=== PATIENT | female | born 1990 | race Caucasian/White ===

== ENCOUNTER → 2023-10-07 16:41 | Outpatient (CLI) | payer OTHER, SELFPAY ==
--- NOTE | 2023-10-07 | DI.US.S_ITS ---
PROCEDURE: US OB <= 14 WEEKS FETUS INDICATIONS: VIABILITY OUTSIDE/PRIOR DATING DATA: Last menstrual period (LMP): August 26, 2023. LMP-based estimated date of delivery (RASHI): June 01, 2024. First dating scan (date and location): October 07, 2023, [facility]. TECHNIQUE: Real-time scanning was performed of the fetus and maternal pelvic organs, with image documentation. Endovaginal scanning was also performed to better visualize the fetus and maternal ovaries. COMPARISON: None. FINDINGS: Embryo: No pole is visualized. No yolk sac is visualized. There is a gestational sac which measures 0.6 cm for a gestational age of 5 weeks 2 days by mean gestational sac diameter. There may be a small perigestational bleed which measures 0.9 x 0.1 by 1.0 cm. Heart rate: Not applicable Maternal organs: Ovaries have a normal sonographic appearance. There is likely a left corpus luteal cyst noted.. IMPRESSION: 1. Gestational sac present with a calculated gestational age of 5 weeks 2 days by mean gestational sac diameter. No pole yet visualized. Differential considerations include early dates. However, ectopic or blighted ovum cannot be excluded and close clinical and sonographic surveillance recommended. We strive to produce accurate, complete, and clear reports of imaging services. To assist us in improving patient care, this report was composed using standard report templates and voice recognition software. Therefore, it may contain abnormal punctuation, insertions and/or omissions. Occasional wrong-word or sound-alike substitutions may occur. Though we review the report and make efforts to correct it, we do recommend that the report be read carefully in proper context to recognize any text inaccuracies. Dictated by: Georgiana Hess M.D. on 10/08/2023 at 10:34 Approved by: Georgiana Hess M.D. on 10/08/2023 at 10:39
== END ==
PROVIDERS: PCP Nurse Practitioner Family; Referring Provider Advanced Practice Midwife; Visit Provider Advanced Practice Midwife
DX: O36.80X0 Pregnancy with inconclusive fetal viability, not applicable or unspecified (principal)
CPT/HCPCS: 76801; 76817

== ENCOUNTER 2024-08-19 16:32 | Outpatient (CLI) | payer OTHER, SELFPAY ==
--- NOTE | 2024-08-19 17:34 | PM.OBTRLD ---
Visit Information Visit Information Date of evaluation: 08/19/24 Primary OB Provider: Simi Galvan On-call OB Provider: Simi Galvan Reason for Evaluation: Yes non-stress test Comments/Additional reasons for admission: 34YO @ 36wks 0 days by LMP concordant with 11wk US referred from clinic for NST. Audible deceleration while in clinic. +FM. No vaginal bleeding, cramping or leaking of fluid. Vital Signs Vital Signs: BP 123/78, HR 111, T 36.3C Temporal PFSH Medical History (Updated 08/27/24 @ 11:55 by Simi Galvan CNM) Hyperthyroidism Surgical History (Updated 08/27/24 @ 11:27 by Simi Galvan CNM) History of D&C Review of Systems Review of Systems ROS: Yes All systems reviewed with the patient and are negative except as otherwise documented Exam Vital Signs (past 8 hours): see above Presentation: vertex Evaluation Evaluation Baseline heart rate: 140 Variability: Moderate (11-25) monitor accelerations: Present Monitor Decelerations: Absent Comments: CE deferred, not in labor Diagnosis, Plan/Disposition Final Diagnosis (1) Encounter for supervision of normal first , unspecified trimester: Status: Acute (2) Unspecified abnormal findings on screening of mother: Status: Acute Problem details: Reactive NST Plan/Disposition Plan: Discharge to home with reassurance of normal and routine precautions. RTC in 1 week as previously scheduled. OB Disposition: home
== END 2024-08-19 17:45 | disposition home or self-care (01) ==
LOC: OB 08-20 06:06
PROVIDERS: PCP Nurse Practitioner Family; Referring Provider Nurse Practitioner Obstetrics & Gynecology; Visit Provider Nurse Practitioner Obstetrics & Gynecology
DX: O36.8330 Maternal care for abnormalities of the fetal heart rate or rhythm, third trimester, not applicable or unspecified (principal); Z3A.36 36 weeks gestation of pregnancy
CPT/HCPCS: 59025; G0378; G0379

== ENCOUNTER 2024-09-13 10:00 | Outpatient (CLI) | payer OTHER, SELFPAY ==
--- NOTE | 2024-09-13 11:38 | PM.OBTRLD ---
Visit Information Visit Information Date of evaluation: 09/13/24 Primary OB Provider: Emily Valencia Reason for Evaluation: Yes rule out labor Comments/Additional reasons for admission: Heladio is a 34yo at 39w 4d gestation arrives with complaints of irregular contractions since , 09/10. Timing contractions at home irregular every 5-30 min. Will have a few in a row that are 5min apart and then a longer break. Feels like they are a little bit more consistent since this am at 0600. Reports pain with contractions similar to her menstrual cycle and states I have painful periods. Still able to talk through contractions and sleep in between them. Reports good movement. Eating and drinking well. No leaking of fluid or bleeding. Needs reassurance that she and her baby are doing well. Vital Signs Vital Signs: BP 125/78, P-118 down to 80 prior to discharge, Temp 36.6C PFSH Medical History (Updated 09/13/24 @ 11:58 by Emily Valencia, ROBERT, DIRECTOR [employer] NURSING) Trisomy 13 of fetus affecting management of Migraines Hyperthyroidism Surgical History (Updated 08/27/24 @ 11:27 by Simi Galvan CNM) History of D&C Evaluation Evaluation Baseline heart rate: 130 Variability: Moderate (11-25) monitor accelerations: Present Monitor Decelerations: Absent Contraction Frequency (minutes): 10 (7-13 w/irritability in between) Uterine Contraction Intensity: Mild Category of Tracing: Reactive Cervical dilation (cm): 1 Cervical effacement (%): 50 station: -3 Diagnosis, Plan/Disposition Final Diagnosis (1) NST (non-stress test) reactive: Status: Acute (2) Supervision of normal in third trimester: Status: Acute Plan/Disposition Plan: A: in early labor at 39w 4d. Vertex presentation Reactive NST GBS negative P: Discharge Home w/ early labor precautions Offered therapeutic rest, declined Recommended [place] circuit Encouraged rest, hydration and good nutrition Call with any concerns or for support. Billing: Z36.89, [id number] Z34.05, [id number]
== END 2024-09-13 11:52 | disposition home or self-care (01) ==
LOC: OB 09-14 08:05
PROVIDERS: PCP Nurse Practitioner Family; Referring Provider Advanced Practice Midwife; Visit Provider Advanced Practice Midwife
DX: O47.1 False labor at or after 37 completed weeks of gestation (principal); Z3A.39 39 weeks gestation of pregnancy
CPT/HCPCS: 59025; G0378; G0379

== ENCOUNTER 2024-09-14 05:41 | Inpatient (IN) | payer OTHER, SELFPAY ==
--- NOTE | 2024-09-14 06:52 | P.HPOB_ITS ---
OB HPI Date/Time Date of admission: 09/14/24 Date Patient Seen: 09/14/24 Time Patient Seen: 06:56 History of Present Condition Chief complaint: Labor : 3 Para: 0 Estimated Date of Delivery: 09/16/24 Estimated Gestational Age (weeks): 39w 5d Narrative: Heladio Henson is a 34 year old female having painful contractions every 10 min, lasting 2.5min since 0200am. Feels like contractions progressingly gotten worse, breathing through them, unable to get comfortable. Rating them 10/10. She has tried bath, TENS unit and position changes at home with no relief. Reports good movement. Concerned about going home, does not feel like therapeutic rest is going to help as she is not feeling tired. She would like to stay for epidural and augmentation; seems relieved to be offered this option. Family history of labor with makes her not opposed to that option and wants if there are concerns about baby before things get emergent. Indications Other reason(s) for admission: Augmenting early labor History of Present care: good care Dating criteria: LMP confirmed by 1st trimester US Ultrasounds: normal 1st trimester US and normal mid trimester US Obstetrical complications: none Medical complications: none Preadmission Labs Blood type: O (+) positive -: Antibody screen: negative, Cystic fibrosis screen: negative, GBS status: negative, HBsAG: negative, HIV: negative, HSV 1: unknown, HSV 2: unknown and RPR/VDLR: negative -: Chlamydia screen: not detected and Gonorrhea screen: not detected -: Rubella: immune and Varicella: immune HCT: 36.1 HCAB: negative PAP: Normal Cell-free DNA: Negative x 3 1 hr GTT: 73 Prior (ies) Hx # Term Pregnancies: 0 Hx # Pregnancies: 0 Number of Living Children: 0 Multiple births: 0 Spontaneous abortions: 1 Ectopic pregnancies: 0 Elective abortions: 1 (15 week TAB for trisomy 13) Evaluation Evaluation Baseline heart rate: 130 Variability: Moderate (11-25) monitor accelerations: Present Monitor Decelerations: Absent Contraction Frequency (minutes): 8 (8-12) Status: Category l Dilation (cm): 2 Effacement (%): 70 Dilation: 1-2 cm Effacement: 60-70% station: -2 Position of cervix: anterior Consistency: soft Vaughn score: 8 [facility] Medical History (Updated 09/13/24 @ 11:58 by Emily Valencia CNM, ALLAN) Trisomy 13 of fetus affecting management of Migraines Hyperthyroidism Surgical History History of D&C Family History Father Hypertension Cancer Mother Hypothyroid Liver transplant status Grandmother Osteoporosis Social History marital status: number of children: 0 household members: spouse lives independently: Yes caregiver/support person: No housing: house pets and animals: Yes current occupational exposures/hazards: No leisure activities: other other: horseback riding seatbelt use: always helmet use: Yes water heater temp set < 120 deg: Yes working smoke detector in home: Yes fire extinguisher in home: Yes carbon monox detector in home: Yes Smoking Status: Never smoker alcohol intake: former substance use type: does not use well-balanced diet: daily or most days Meds Home Medications and Allergies Allergies Allergy/AdvReac Type Severity Reaction Status Date / Time amoxicillin Allergy Rash Verified 09/14/24 07:42 Review of Systems Constitutional Comments: No fatigue OB Exam Vital signs Blood Pressure: 131/79 Pulse Rate: 110 Respiratory Rate: 18 Temperature: 97.7 F HENMT Head: normal to inspection and normocephalic Mouth: lip normal Eyes General: appearance normal, both eyes and all related structures Resp Effort & Inspection: normal respiratory effort and able to speak in complete sentences Cardio Rate: regular rate Rhythm: regular rhythm Heart Sounds: S1 normal and S2 normal Extremities Lower extremity: Yes normal to inspection GI Inspection: normal to inspection External Female Exam: Yes normal external appearance Presentation: vertex Assessment and Plan Assessment and Plan Assessment and Plan narrative: A: 34yo at 39w5d Early Labor Negative GBS Rubella Immune Category I tracing Rh positive Pen allergic P: Offered therapeutic rest in hospital or at home versus labor epidural and augmentation w/oxytocin PRN. Provided reassurance that CNM priority is safety of mother and baby. Reviewed possible side effects of epidural and position changes for resucitation. Admit to L&D for epidural. Anticipate . Time-Based Coding :: [TOTAL MINUTES] spent with patient and on the chart (including review of chart, obtaining history, exam, reviewing outside data, placing orders, documenting exam and treatment plan, and counseling patient) on [DATE].
[2024-09-14 07:53] VITALS: BP 131/79; PULSE 110; RESP 18; TEMP 36.5
[2024-09-14] MEDS: LACTATED RINGERS 1,000 ML 100 ML IV ×3 (08:44→18:12)
[2024-09-14 08:47] LABS: Add Manual Diff / Slide Review NO; Basophils Absolute Auto 100 /uL (0-100); Basophils Percent Auto 0.4 % (0-2); Eosinophils Absolute Auto 100 /uL (0-450); Eosinophils Percent Auto 0.3 % (2-4); Hematocrit 38.9 % (36-46); Hemoglobin 13.2 g/dL (12.0-16.0); Lymphocytes Absolute Auto 1500 /uL (1100-4500); Lymphocytes Percent Auto 9.6 % (25-40); Mean Corpuscular HGB Conc 33.9 % (30-36); Mean Corpuscular Hemoglobin 30.8 PG (26-34); Mean Corpuscular Volume 90.9 fL (80-100); Monocytes Absolute Auto 700 /uL (0-900); Monocytes Percent Auto 4.5 % (3-14); Neutrophils Absolute Auto 13700 /uL (1500-7000); Neutrophils Percent Auto 85.2 % (50-75); Platelet Count 172 X10^3/uL (150-400); Red Blood Cell Count 4.28 X10^6/uL (4.0-5.2); Red Cell Distribution Width 14.8 % (11.6-14.8)
--- NOTE | 2024-09-14 09:38 | PM.AN.REGBLK ---
Regional Block Pre-procedure Procedure: Continuous Lumbar Epidural for L&D Attending OB provider: Emily Valencia PMH/ROS narrative: , 39 5/7, spontaneous labor, membranes intact, dilation 2 requests epidural. ROS negative with exception of GERD with this . PSH/Anesthesia history narrative: [place] teeth, elective -no anesthesia complications Exam narrative: Mall 2, no concerns ASA Class: II Labs: Hct 38.9 % (36-46) 09/14/24 08:20 Plt Count 172 X10^3/uL (150-400) 09/14/24 08:20 Medications: Current Medications Generic Name Dose Route Start Last Admin Trade Name Freq PRN Reason Stop Dose Admin Calcium Carbonate 1,000 mg 09/14/24 06:53 Calcium Carbonate 500 Mg Tab PO Q2HR PRN Dyspepsia Carboprost Tromethamine 250 mcg 09/14/24 06:53 Carboprost 250 Mcg/Ml Ampul IM Q90M PRN Bleeding Fentanyl 100 mcg 09/14/24 06:53 Fentanyl 100 Mcg/2 Ml Inj IV Q1H PRN Pain, Severe (7-10) Oxytocin/Lactated Ringer's 30 unit in 500 mls @ 200 mls/hr 09/14/24 06:53 Oxytocin Premix IV CONT PRN Bleeding Protocol Tranexamic Acid 1,000 mg/ 100 mls @ 600 mls/hr 09/14/24 06:53 Sodium Chloride IV NOW PRN Bleeding Oxytocin/Lactated Ringer's 30 unit in 500 mls @ 2 mls/hr 09/14/24 07:00 Oxytocin Premix IV TITRATE NIKKI Protocol 2 MILLIUNIT/MIN Lactated Ringer's 1,000 mls @ 100 mls/hr 09/14/24 07:00 09/14/24 08:44 Lactated Ringers IV 09/14/24 16:59 100 mls/hr CONT NIKKI Administration Lidocaine HCl 20 ml 09/14/24 06:53 Lidocaine 1% 20 Ml INJ INTRA-OP PRN Post Delivery Methylergonovine Maleate 0.2 mg 09/14/24 06:53 Methylergonovine 0.2 Mg Tablet PO Q6HR PRN Heavy Bleeding Methylergonovine Maleate 0.2 mg 09/14/24 06:53 Methylergonovine 0.2 Mg/Ml Vial IM NOW PRN Bleeding Mineral Oil 30 ml 09/14/24 06:53 Mineral Oil 30 Ml Udc TOP PRN PRN Version Misoprostol 800 mcg 09/14/24 06:53 Misoprostol 200 Mcg Tablet WV NOW PRN Bleeding Misoprostol 400 mcg 09/14/24 06:53 Misoprostol 200 Mcg Tablet SL NOW PRN Bleeding Naloxone HCl 0.2 mg 09/14/24 06:53 Naloxone 0.4 Mg/Ml Vial IV Q2MIN PRN Opiate Reversal Ondansetron HCl 4 mg 09/14/24 06:53 Ondansetron 4 Mg/2 Ml Inj IV Q4HR PRN Nausea And Vomiting Oxytocin 10 unit 09/14/24 06:53 Oxytocin 10 Unit/Ml Vial IM NOW PRN Bleeding Allergies: Allergies Allergy/AdvReac Type Severity Reaction Status Date / Time amoxicillin Allergy Rash Verified 09/14/24 07:42 Procedure Insertion date: 09/14/24 Insertion time: 08:56 Prep/Local: 1% lidocaine (chlorhexidine skin prep, dry x 3 min) Interspace: L4-5 Patient position: sitting Needle: 17 gauge Tuohy Loss of resistance with: saline MATTHEW at (cm): 6 Catheter placed at SKIN (cm): 13 Catheter in SPACE (cm): 7 Sensory level: T10 Insertion: No CSF, No Blood, No Paresthesia with insertion, No Paresthesia with injection and No Test dose reaction Initial Medications TEST DOSE time: 09:21 BOLUS DOSE time: 09:33 BOLUS DOSE (mL): 5 BOLUS DOSE med: other (pump solution) Infusion INFUSION: 0.125% bupivacaine and with fentanyl 2 mcg/mL Initial rate (mL/hr): 8 Subsequent interventions: 2030- 10cc 2% lido Post-procedure Anesthesia date START: 09/14/24 Anesthesia time START: 08:56 Anesthesia date END: 09/15/24 Anesthesia time END: 04:30 Post-procedure Anesthesia Assessment: Yes CV function: HR/BP stable, Yes Resp function: RR/sat/airway adequate, Yes Post-op hydration adequate, Yes Pain control adequate, Yes Nausea & vomiting absent, Yes Temperature > 36 C, Yes Mental status appropriate and Yes Anesthesia complications
[2024-09-14] MEDS: ePHEDrine 50 MG/ML VIAL 10 MG IV ×7 (10:01→20:52)
--- NOTE | 2024-09-14 11:36 | P.PNOB_ITS ---
Date/Time Date Patient Seen: 09/14/24 Time Patient Seen: 11:36 Pain Control Pain control: epidural Comments: Collyn relieved; denies pain since epidural, appears comfortable. Occasionally feeling tightening VS: Temp 37.2C temporal, HR 110-135, O2sat 92-94%, BP 112/72 Bloody show noted. 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 Assessment and Plan Assessment: other Comments: A: at 39w5d in early labor Epidural in place GBS negative Hypotensive post epidural/Tachycardic post ephedrine x2. Category I FHR P: Continue current plan Defer CE until later; plan recheck in 4 hours. Anticipate NSVB.
[2024-09-14 14:31] LABS: Add Manual Diff / Slide Review NO; Basophils Absolute Auto 0 /uL (0-100); Basophils Percent Auto 0.1 % (0-2); Eosinophils Absolute Auto 0 /uL (0-450); Eosinophils Percent Auto 0.2 % (2-4); Hemoglobin 12.4 g/dL (12.0-16.0); Lymphocytes Absolute Auto 1400 /uL (1100-4500); Lymphocytes Percent Auto 7.6 % (25-40); Mean Corpuscular HGB Conc 33.6 % (30-36); Mean Corpuscular Hemoglobin 30.6 PG (26-34); Mean Corpuscular Volume 91.1 fL (80-100); Monocytes Absolute Auto 700 /uL (0-900); Monocytes Percent Auto 3.9 % (3-14); Neutrophils Absolute Auto 15700 /uL (1500-7000); Neutrophils Percent Auto 88.2 % (50-75); Platelet Count 169 X10^3/uL (150-400); Red Blood Cell Count 4.07 X10^6/uL (4.0-5.2); Red Cell Distribution Width 14.8 % (11.6-14.8); White Blood Cell Count 17.9 X10^3/uL (4.5-11.0)
[2024-09-14 15:42] VITALS: TEMP 37.7
[2024-09-14] MEDS: ACETAMINOPHEN 325 MG TABLET 650 MG PO (15:42)
--- NOTE | 2024-09-14 17:55 | PM.OBPNLAB ---
Date/Time Date Patient Seen: 09/14/24 Time Patient Seen: 17:30 Pain Control Pain control: epidural Comments: Heladio is in good spirits, well supported by her , Kj. Able to nap after epidural. Tolerating clear liquids, encouraged hydration. Reports adequate pain relief with epidural, no pain at this time. VS BP 130/72, HR 116-145, O2 Sat 92-100%, Temp 37.1C temporal Pelvic Exam Dilation (cm): 6 Effacement (%): 90 station: -2 Amniotic membrane status: Leaking (forebag ruptured at 1742) Contractions Monitor mode: External Contraction frequency (min): 7 (Currently 6-8min) Contraction duration (min): 80 (70-90sec) Contraction pattern: Regular Contraction phase: Resting Status status: Category l Heart Rate Baseline: 145 Monitor Accelerations: Present Monitor Decelerations: Absent Monitor Variability: Moderate Assessment and Plan Assessment: active labor Plan: continuous present management Comments: A: 34yo in active labor Meconium stained amniotic fluid Epidural GBS negative Category I FHR tracing Plan: AROM Recheck cervix in 4hrs or sooner PRN Anticipate NSVB
[2024-09-14] MEDS: FENT 2MCG/ML BUPIV 0.125% EPI 200 MCG/100 ML PLAST..BAG 8 MCG EPIDURAL (19:40)
[2024-09-14] MEDS: OXYTOCIN PREMIX 30 UNIT/500 ML PLAST..BAG IV (22:20)
--- NOTE | 2024-09-14 22:33 | PM.OBPNLAB ---
Date/Time Date Patient Seen: 09/14/24 Time Patient Seen: 22:33 Pain Control Pain control: epidural Comments: Heladio started having pain 8 out of 10 on pain scale in low abdomen at 2013, after anesthesia bolus pain improved. Currently having mild pain on left side (right lateral position), changed to left lateral position and now pain is improving. VS: BP 115/61, 128/81, HR 115-122, O2sats 97-99%, Temp 37.1C Pelvic Exam Dilation (cm): 6 Effacement (%): 90 station: -1 Amniotic membrane status: Leaking (forebag ruptured at 1742) Comments: Meconium not obviously seen on exam; clear fluid with brown vaginal discharge. Contractions Monitor mode: External Pitocin rate (mU/min): 2 (started at 2220) Contraction frequency (min): 3 (Currently 3-4min) Contraction duration (min): 70 (70-100) Contraction pattern: Regular Contraction phase: Resting Status status: Category l Heart Rate Baseline: 130 Monitor Accelerations: Present Monitor Decelerations: Absent Monitor Variability: Moderate Comments: Category II tracing at 2013, pt having pain, variables w/contractions after epidural bolus. Lowest BP reading 80/45 after bolus at 2019. Ephedrine given x3, positions changed blood pressure improved. FHR tracing Cat I since 2129. Assessment and Plan Comments: A: 34yo Epidural Negative GBS Category I tracing Protracted active phase of labor Hypotension post epidural bolus P: Augmentation with oxytocin started, consent from patient prior to starting. Comfortable with epidural anesthesia. Anticipate NSVB Recheck cervix in 4 hours or sooner PRN
[2024-09-15 00:13] VITALS: BP 128/73
[2024-09-15] MEDS: FENT 2MCG/ML BUPIV 0.125% EPI 200 MCG/100 ML PLAST..BAG 8 MCG EPIDURAL (01:20)
--- NOTE | 2024-09-15 02:31 | PM.OBPNLAB ---
Date/Time Date Patient Seen: 09/15/24 Time Patient Seen: 02:31 Pain Control Pain control: epidural Comments: Heladio requested exam due to increasing vaginal pain and rectal pressure. Excited to begin pushing, which feels better. Well supported by Kj. Excited to meet baby boy. Pelvic Exam Dilation (cm): 10 Effacement (%): 100 station: +1 Amniotic membrane status: Leaking (forebag ruptured at 1742) Comments: VS: BP 110/58 HR: 131 bpm Temp:37.6 C Contractions Monitor mode: External Pitocin rate (mU/min): 8 Contraction frequency (min): 3 (Currently 2-4min) Contraction pattern: Regular Contraction phase: Resting Status status: Category l Heart Rate Baseline: 140 Monitor Accelerations: Present Monitor Decelerations: Absent Monitor Variability: Moderate Comments: Single unusual deceleration at 0219 quickly resolved with position change just after initiation of pushing. Assessment and Plan Comments: at 39w6d in 2nd stage labor GBS neg FHR Cat 1 Continue pushing Anticipate NSVB
[2024-09-15] MEDS: OXYTOCIN PREMIX 30 UNIT/500 ML PLAST..BAG 200 UNIT IV (04:42)
--- NOTE | 2024-09-15 05:06 | PM.OBPRVD ---
Events: Labor Augmentation and Meconium Stained Fluid Labor & Delivery Delivery date: 09/15/24 Delivery Time: 04:30 Intrapartal Events: Prolonged Latent Phase and Deceleration Delivery augmentation: rupture of membranes and pitocin Delivery monitor: external FHT and external uterine Route of delivery: Episiotomy description: None L&D Laceration Description: Periurethral - 1st Degree and Vaginal - 1st Degree Delivery repair: other (Hemostatic and well approximated, not repaired) Quantitative Blood Loss: 183 Anesthesia Type: Epidural Narrative: sydnie Leija 34yo was admitted in early labor, received epidural at 0913. Vaginal exam at 1740 6/90%/-2, AROM of forebag at that time light meconium. Second exam at 2209 minimal cervical change. Discussed augmentation with Pitocin, Heladio agreeable to plan of care. Labor progressed w/ Pitocin at max dose of 8mu/min. 0200 feeling increasing rectal/vaginal pressure. Started pushing at 0211, average 2nd stage 2 hours 17 min. FHR was Category II throughout 2nd stage. NSVB of viable baby boy at 0430 in EDILIA position, shoulders delivered easily without additional maneuvers. was placed on maternal abdomen for drying and stimulation. Remaining Pitocin 30U/500ml was started at 333ml/hr for AMTSL. The cord was double clamped by SNM and cut by FOB after two minutes, baby taken to warmer for respiratory support and peds assumed care of . Apgars 3/6/8. Placenta delivered spontaneously, Schultze, with maternal efforts, appeared intact, 3 vessel cord. Cord blood collected and sent to lab. Perineum inspected small first degree vaginal laceration and a shallow right periurethral laceration noted, hemostatic and well approximated. No repair needed. Blood loss measured and estimated loss is 183 mL. Mom left stable, thrilled she had a vaginal delivery. She and Kj are thrilled to meet their baby. Baby in nursery with pediatric provider. Emily LEMUS, CNM, IBCLC [place] Baby 1: gender: Male Presentation: vertex Position: Right Occiput Anterior Placenta delivery description: Spontaneous Cord Vessel Description: 3 Vessels score (1 min): 3 score (5 min): 6 score (10 min): 8 weight: 2916 kg Narrative: Terminal mec. Dried and stimulated on maternal abdomen, poor respiratory effort, good HR. Taken to warmer at 2min of life. Respiratory therapy present. Peds called assumed care of . Plan for aftercare: Routine care
[2024-09-15] MEDS: KETOROLAC 30 MG/ML VIAL IV (05:50)
[2024-09-15] MEDS: WITCH HAZEL/GLYCERIN PADS 1 EACH TOP (05:58)
[2024-09-15] MEDS: DERMOPLAST SPRAY 20% 60 ML 1 SPRAY TOP (05:59)
[2024-09-15] MEDS: IBUPROFEN 600 MG TABLET PO ×2 (13:23→20:51)
[2024-09-15] MEDS: ACETAMINOPHEN 325 MG TABLET 650 MG PO ×2 (13:24→20:51)
[2024-09-15] MEDS: HYDROCODONE/ACET 5/325 TABLET 1 TAB PO (16:59)
[2024-09-15] MEDS: LANOLIN OINT 7 GM 1 APPLIC TOP (21:28)
[2024-09-16] MEDS: IBUPROFEN 600 MG TABLET PO ×2 (03:09→08:53)
[2024-09-16] MEDS: ACETAMINOPHEN 325 MG TABLET 650 MG PO ×2 (03:10→08:54)
--- NOTE | 2024-09-16 11:13 | P.DS_ITS ---
Discharge Providers Provider Date of admission: 09/14/24 05:41 Discharge Date: 09/16/24 Primary care physician: ALLAN Manrique Consults: 09/14/24 06:53 Consult to Anesthesiology Urgent Comment: Consulting Provider: Anesthesiologist Reason for consultation: Epidural Has provider been notified: No 09/16/24 05:04 Consult to Electrical Sign Servicer Routine Comment: Discharge provider: Emily Valencia CNM, ARNP Summary Hospital Course Date Patient Seen: 09/16/24 Time Patient Seen: 11:13 Diagnoses: O80 Hospital Course: Arrived to L&D in early labor, epidural, AROM, 2 hour 2nd stage, NSVB. Intact perineum, vaginal and periurethral lacerations not repaired. Usual course. . Peripartum Data Infant Delivery Method: Natural Vaginal Laceration Description: Periurethral - 1st Degree and Vaginal - 1st Degree complications: none 1: Gender: Male Disposition of : home Discharge Diagnosis (1) (normal spontaneous vaginal delivery): Status: Acute (2) Mother currently breast-feeding: Status: Acute Status at Discharge Cognitive/behavioral status at discharge: oriented and calm Functional status at discharge: independent ambulation Overall status at discharge: patient is progressing back to baseline Time Spent with Patient Time attestation: Total time spent providing and/or coordinating discharge services: Time spent: Less than 30 minutes Specific discharge activities: discharge teaching Objective Labs 09/14/24 14:26 Exam Other: Fundus firm at U, midline. Lochia scant Perineum intact with minimal edema Discharge Plan Discharge Plan Patient Disposition: Home Discharge orders & Medications Follow up/Referrals: Emily Valencia CNM, ARNP [Advanced Real Estate Director] - (Follow[place] with [facility] [place] per email. ) Tatum Srinivasan ARNP [Primary Care Provider] - Diet/Activity/Treatments Diet: Diet as Tolerated and Regular Diet comment: increase fiber and fluid for healing and stools Activity: low rivas x 2 weeks Cold/Heat Therapy: as needed Skin/Wound/Dressing Care Skin care: usual care, okay to shower or bathe Visit Report/Discharge Packet Instructions: DI for Labor and Delivery, Vaginal Stand Alone Forms: Discharge: Care, Patient Portal/API, Stroke Signs & Symptoms Discharge Data Primary Care Provider: Tatum Srinivasan
[2024-09-16 12:26] VITALS: BP 121/78; PULSE 106; RESP 16; TEMP 36.6
== END 2024-09-16 13:54 | disposition home or self-care (01) | DRG 806 ==
PROVIDERS: Admitting Provider Advanced Practice Midwife; PCP Nurse Practitioner Family; Referring Provider Advanced Practice Midwife; Visit Provider Advanced Practice Midwife
DX: O76 Abnormality in fetal heart rate and rhythm complicating labor and delivery (principal); O47.1 False labor at or after 37 completed weeks of gestation; Z37.0 Single live birth; Z3A.39 39 weeks gestation of pregnancy; I95.2 Hypotension due to drugs; O63.0 Prolonged first stage (of labor); O70.0 First degree perineal laceration during delivery; Z67.40 Type O blood, Rh positive
CPT/HCPCS: 36415; 59025; 59050; 85025; 86850; 86900; 86901; G0379; J1885; J2590